=== PATIENT | male | born 1950 | race Two or more races ===

== ENCOUNTER 2024-05-08 18:35 | Emergency (ER) | payer MEDICARE, OTHER ==
[~2024-05-08] VITALS: Ht 182.9 cm; Wt 91.1 kg
--- NOTE | 2024-05-08 19:45 | DVH ---
EXAM: CT CERVICAL WITHOUT CONTRAST INDICATION: trauma/fall EXAM DATE: 05/08/2024 07:06 PM COMPARISON: None TECHNIQUE: Multiple axial CT images of the cervical spine were obtained using bone algorithm. Axial a nd coronal reformatting was done. Bone and soft tissue windows were reviewed. Radiation Dose Information: CT Dose: CTDI volume is 66.95 mGy. Dose-length product is 2454.14 mGy*cm Findings: There is no evidence of an acute fracture or spondylolisthesis. The vertebral body heights are well-m aintained. The craniocervical junction and dens are intact. Moderate spondylosis. No evidence of degenerative disc disease. No neuroforaminal narrowing. No spinal canal stenosis. There is a normal cervical lordosis. The thyroid gland is unremarkable. The lung apices demonstrate no acute abnormality. The paraspinal a nd neck soft tissues appear within normal limits. C2-3: Normal C3-4: Normal C4-5: Normal C5-6: Normal C6-7: Normal C7-T1: Normal Impression: 1. No evidence of an acute fracture.
--- NOTE | 2024-05-08 19:56 | DVH ---
EXAM: CT MAXILLOFACIAL WITHOUT INDICATION: trauma/fall EXAM DATE: 05/08/2024 07:06 PM COMPARISON: None TECHNIQUE: Multiple axial CT images of the maxilla and face were obtained using bone algorithm. Axial and coronal reformatting was done. Bone and soft tissue windows were reviewed. Radiation Dose Information: CT Dose: CTDI volume is 25.53 mGy. Dose-length product is 771.67 mGy*cm Findings: There is no evidence of an acute fracture or traumatic subluxations. No evidence of lytic, blastic, or osseous destructive lesions. The paranasal sinuses, middle ear cavities, and mastoid air cells are normally aerated. The globes an d orbits are within normal limits. The nasal septum, nasal cavity, nasopharynx, and oropharynx are grossly unremarkable. Large right frontal and periorbital soft tissue hematoma. Impression: 1. No acute osseous abnormality. 2. Large right frontal and periorbital soft tissue hematoma.
--- NOTE | 2024-05-08 20:10 | ED.PDOC ---
Back pain HPI Chief Complaint: Fall Injury Time Seen by MD: 18:47 Primary Care Provider: UNKNOWN Reviewed Notes: Nurses Notes, Medications, Allergies Allergies: Coded Allergies: NO KNOWN ALLERGIES (Unverified , 05/08/24) Information Source: Patient Mode of Arrival: Ambulatory X-Ray, Labs, Meds, VS Vital Signs Date Time Temp Pulse Resp B/P (MAP) Pulse Ox O2 Delivery O2 Flow Rate FiO2 05/08/24 18:59 105 16 96 Room Air 05/08/24 18:59 98.1 105 16 163/106 (125) 96 98.1 05/08/24 18:49 98.1 105 16 163/106 (125) 96 Time of 1ST Reevaluation: 20:09 Reevaluation 1ST: Improved Patient Education/Counseling: Diagnosis, Treatment, Prognosis, Need For Follow Up Family Education/Counseling: No Family Present Departure 1 Departure Time of Disposition: 20:10 Impression: Primary Impression: Periorbital hematoma of right eye Disposition: 01 HOME / SELF CARE / HOMELESS Condition: Stable Discharged With: Spouse Critical Care Note Critical Care Time?: No LORY DAVIS May 08, 2024 20:10
[2024-05-08 20:30] VITALS: BP 146/99; PULSE 95; RESP 18; TEMP 98.3; O2SAT 97
== END 2024-05-08 20:36 | disposition home or self-care (01) ==
LOC: ER 18:35
DX: S05.11XA Contusion of eyeball and orbital tissues, right eye, initial encounter (principal); W18.09XA Striking against other object with subsequent fall, initial encounter; Y93.89 Activity, other specified; Y92.89 Other specified places as the place of occurrence of the external cause; Y99.8 Other external cause status
CPT/HCPCS: 70486; 72125